=== PATIENT | male | born 1940 | race Caucasian/White ===

== ENCOUNTER 2016-09-24 12:56 | Inpatient (IN) | payer MEDICARE, OTHER ==
[~2016-09-24] VITALS: Ht 180.3 cm; Wt 90.2 kg
[~2016-09-24 12:56] MED LIST: BISACODYL EC 5 MG TAB PO PRN
[2016-09-24] MEDS ORDERED: LOPERAMIDE 2 MG CAPSULE PO PRN (16:25)
[2016-09-24] MEDS ORDERED: ALU/MAG/SIM 30 ML UDC PO PRN (16:25)
[2016-09-24] MEDS ORDERED: MAG HYDROX 30 ML UDC PO PRN (16:25)
[2016-09-24] MEDS ORDERED: METHYLPRED SOD SUCC 125 MG/2 ML VIAL IV ONE (16:25)
[2016-09-24] MEDS ORDERED: ACETAMINOPHEN 325 MG TAB PO PRN (16:25)
[2016-09-24] MEDS ORDERED: ONDANSETRON 4 MG VIAL IV PRN (16:25)
[2016-09-24] MEDS ORDERED: SODIUM CHLORIDE 0.9% FLUSH BAG 500 ML IV PRN (16:25)
[2016-09-24] MEDS ORDERED: PROMETHAZINE 25 MG/ML VIAL IV PRN (16:25)
[2016-09-24] MEDS ORDERED: TEMAZEPAM 15 MG CAP PO PRN (16:25)
[2016-09-24] MEDS ORDERED: SALINE FLUSH 10 ML FLUSH PRN (16:25)
[2016-09-24 16:29] VITALS: BP_SYST 142; BP_SYST 152; RESP 20; TEMP 97.9
[2016-09-24 16:31] VITALS: Ht 180.3 cm; Wt 90.2 kg
[2016-09-24] MEDS ORDERED: DUONEB INH ONE (16:58)
[2016-09-24] MEDS: DUONEB INH SCH ×2 (17:01→23:20)
[2016-09-24 17:08] VITALS: RESP 18
[2016-09-24] MEDS: MDI-SPIRIVA 5 DOSES INH SCH (17:30)
[2016-09-24] MEDS: LEVOFLOXACIN 750 MG/150 ML 150 ML IV SCH (17:56)
[2016-09-24] MEDS: CETIRIZINE 10 MG TAB PO SCH (18:41)
[2016-09-24] MEDS: Furosemide 80 MG TAB PO SCH (18:41)
[2016-09-24] MEDS: ISOSORBIDE MONO 60 MG TAB PO SCH (18:41)
[2016-09-24] MEDS: METOPROLOL TART 50 MG TAB PO SCH (18:42)
[2016-09-24] MEDS: LISINOPRIL 2.5 MG TAB PO SCH (18:42)
[2016-09-24] MEDS: AMIODARONE 200 MG TAB PO SCH (18:42)
[2016-09-24] MEDS: SPIRONOLACTONE 25 MG TAB PO SCH (18:42)
[2016-09-24] MEDS: SERTRALINE 50 MG TAB PO SCH (18:42)
[2016-09-24] MEDS: FAMOTIDINE 20 MG TAB PO SCH (20:30)
[2016-09-24] MEDS: Atorvastatin 20 MG TAB PO SCH (20:30)
[2016-09-24] MEDS: GABAPENTIN 300 MG CAP PO SCH (20:30)
[2016-09-24] MEDS: SALINE FLUSH 10 ML FLUSH SCH (20:30)
[2016-09-24 20:35] VITALS: BP_SYST 158; RESP 18; TEMP 96.8
[2016-09-25] VITALS (9 sets, daily range): BP systolic 130–174; RESP 16–20; TEMP 97.3–98
[2016-09-25] MEDS: METHYLPRED SOD SUCC 125 MG/2 ML VIAL IV SCH ×3 (00:46→16:25)
[2016-09-25] MEDS: DUONEB INH SCH ×6 (02:50→22:40)
[2016-09-25] MEDS ORDERED: NITROGLYCERIN SL 0.4 MG TAB SL ONE (03:47)
[2016-09-25] MEDS ORDERED: NITROGLYCERIN SL 0.4 MG TAB SL PRN (05:00)
[2016-09-25] MEDS: LEVOTHYROXINE 0.088 MG TAB PO SCH (05:43)
[2016-09-25] MEDS: MDI-SPIRIVA 5 DOSES INH SCH (07:00)
[2016-09-25] MEDS: LEVOFLOXACIN 750 MG/150 ML 150 ML IV SCH (09:38)
[2016-09-25] MEDS: NITROGLYCERIN 0.4 MG/HR PATCH TRANSDERM SCH (09:39)
[2016-09-25] MEDS: ASPIRIN EC 81 MG TAB PO SCH (09:40)
[2016-09-25] MEDS: SALINE FLUSH 10 ML FLUSH SCH ×2 (09:41→20:39)
[2016-09-25] MEDS: CETIRIZINE 10 MG TAB PO SCH (09:41)
[2016-09-25] MEDS: SERTRALINE 50 MG TAB PO SCH (09:42)
[2016-09-25] MEDS: LISINOPRIL 2.5 MG TAB PO SCH (09:42)
[2016-09-25] MEDS: ISOSORBIDE MONO 60 MG TAB PO SCH (09:42)
[2016-09-25] MEDS: FAMOTIDINE 20 MG TAB PO SCH ×2 (09:42→20:38)
[2016-09-25] MEDS: AMIODARONE 200 MG TAB PO SCH (09:42)
[2016-09-25] MEDS: SPIRONOLACTONE 25 MG TAB PO SCH (09:42)
[2016-09-25] MEDS: METOPROLOL TART 50 MG TAB PO SCH (09:43)
[2016-09-25] MEDS ORDERED: MISSING DOSE XX ONE (10:30)
[2016-09-25] MEDS: NITROGLYCERIN SL 0.4 MG TAB SL SCH ×4 (11:57→20:44)
[2016-09-25] MEDS: Furosemide 80 MG TAB PO SCH (12:40)
[2016-09-25] MEDS: GABAPENTIN 300 MG CAP PO SCH (20:38)
[2016-09-25] MEDS: Atorvastatin 20 MG TAB PO SCH (20:38)
[2016-09-25] MEDS: TRAMADOL 50 MG TAB PO PRN (20:38)
[2016-09-26] MEDS: METHYLPRED SOD SUCC 125 MG/2 ML VIAL IV SCH (00:32)
[2016-09-26] MEDS: DUONEB INH SCH ×6 (03:14→22:31)
[2016-09-26 03:44] VITALS: BP_SYST 138; RESP 20; TEMP 96.9
[2016-09-26] MEDS: LEVOTHYROXINE 0.088 MG TAB PO SCH (05:14)
[2016-09-26] MEDS: MORPHINE 2 MG/ML SYR IV PRN ×2 (05:15→20:03)
[2016-09-26] MEDS: MDI-SPIRIVA 5 DOSES INH SCH (07:09)
[2016-09-26] MEDS ORDERED: METHYLPRED SOD SUCC 40 MG VIAL IV SCH ×2 (08:00→16:00)
[2016-09-26] MEDS: SALINE FLUSH 10 ML FLUSH SCH ×2 (08:00→20:01)
[2016-09-26] MEDS: NITROGLYCERIN 0.4 MG/HR PATCH TRANSDERM SCH (09:33)
[2016-09-26] MEDS: ISOSORBIDE MONO 60 MG TAB PO SCH (09:35)
[2016-09-26] MEDS: METOPROLOL TART 50 MG TAB PO SCH (09:35)
[2016-09-26] MEDS: SERTRALINE 50 MG TAB PO SCH (09:35)
[2016-09-26] MEDS: SPIRONOLACTONE 25 MG TAB PO SCH (09:35)
[2016-09-26] MEDS: AMIODARONE 200 MG TAB PO SCH (09:35)
[2016-09-26] MEDS: Furosemide 80 MG TAB PO SCH (09:36)
[2016-09-26] MEDS: LEVOFLOXACIN 750 MG/150 ML 150 ML IV SCH (09:36)
[2016-09-26] MEDS: CETIRIZINE 10 MG TAB PO SCH (09:36)
[2016-09-26] MEDS: LISINOPRIL 2.5 MG TAB PO SCH (09:36)
[2016-09-26] MEDS: ASPIRIN EC 81 MG TAB PO SCH (09:36)
[2016-09-26] MEDS: FAMOTIDINE 20 MG TAB PO SCH ×2 (09:38→19:58)
[2016-09-26] MEDS: PANTOPRAZOLE 40 MG TAB PO SCH (12:00)
[2016-09-26 13:15] VITALS: BP_SYST 114; RESP 18; TEMP 95.5
[2016-09-26 15:43] VITALS: BP_SYST 128; RESP 18; TEMP 96.3
[2016-09-26] MEDS: METHYLPRED SOD SUCC 40 MG VIAL IV SCH (17:44)
[2016-09-26] MEDS: TRAMADOL 50 MG TAB PO PRN ×2 (17:45→22:44)
[2016-09-26] MEDS: GABAPENTIN 300 MG CAP PO SCH (19:58)
[2016-09-26] MEDS: Atorvastatin 20 MG TAB PO SCH (20:01)
[2016-09-26 21:59] VITALS: BP_SYST 130; RESP 18; TEMP 97.1
[2016-09-26 23:22] VITALS: BP_SYST 130; RESP 18; TEMP 96.7
[2016-09-27] MEDS: METHYLPRED SOD SUCC 40 MG VIAL IV SCH ×3 (00:58→18:01)
[2016-09-27] MEDS: DUONEB INH SCH ×6 (02:48→22:44)
[2016-09-27 03:33] VITALS: BP_SYST 130; RESP 16; TEMP 98
[2016-09-27] MEDS ORDERED: MISSING DOSE XX ONE ×3 (06:15→20:35)
[2016-09-27] MEDS: LEVOTHYROXINE 0.088 MG TAB PO SCH (06:35)
[2016-09-27] MEDS: PANTOPRAZOLE 40 MG TAB PO SCH (06:35)
[2016-09-27 07:43] VITALS: BP_SYST 122; RESP 20; TEMP 98.2
[2016-09-27] MEDS: MDI-SPIRIVA 5 DOSES INH SCH (07:49)
[2016-09-27] MEDS: ISOSORBIDE MONO 60 MG TAB PO SCH (09:39)
[2016-09-27] MEDS: METOPROLOL TART 50 MG TAB PO SCH (09:39)
[2016-09-27] MEDS: NITROGLYCERIN 0.4 MG/HR PATCH TRANSDERM SCH (09:39)
[2016-09-27] MEDS: LEVOFLOXACIN 750 MG/150 ML 150 ML IV SCH (09:39)
[2016-09-27] MEDS: AMIODARONE 200 MG TAB PO SCH (09:39)
[2016-09-27] MEDS: CETIRIZINE 10 MG TAB PO SCH (09:40)
[2016-09-27] MEDS: ASPIRIN EC 81 MG TAB PO SCH (09:40)
[2016-09-27] MEDS: SPIRONOLACTONE 25 MG TAB PO SCH (09:40)
[2016-09-27] MEDS: SALINE FLUSH 10 ML FLUSH SCH ×3 (09:40→20:32)
[2016-09-27] MEDS: SERTRALINE 50 MG TAB PO SCH (09:40)
[2016-09-27] MEDS: LISINOPRIL 2.5 MG TAB PO SCH (09:40)
[2016-09-27 11:07] VITALS: BP_SYST 132; RESP 20; TEMP 96.3
[2016-09-27] MEDS: FAMOTIDINE 20 MG TAB PO SCH ×2 (11:31→20:31)
[2016-09-27] MEDS: TRAMADOL 50 MG TAB PO PRN ×2 (11:31→20:32)
[2016-09-27] MEDS ORDERED: LORAZEPAM 0.5 MG TAB PO PRN (12:35)
[2016-09-27] MEDS ORDERED: SALINE FLUSH 10 ML FLUSH PRN (12:35)
[2016-09-27 14:42] VITALS: BP_SYST 132; RESP 20; TEMP 96.1
[2016-09-27] MEDS: NYSTATIN 500,000 UNITS/5 ML SUSP SWISH.SWAL SCH ×4 (17:00→20:50)
[2016-09-27 20:30] VITALS: BP_SYST 140; RESP 18; TEMP 96.2
[2016-09-27] MEDS: GABAPENTIN 300 MG CAP PO SCH (20:31)
[2016-09-27] MEDS: Atorvastatin 20 MG TAB PO SCH (20:31)
[2016-09-27] MEDS ORDERED: TEMAZEPAM 15 MG CAP PO PRN (21:00)
[2016-09-27] MEDS ORDERED: SODIUM CHLORIDE 0.9% 1,000 ML IV SCH (23:55)
[2016-09-28] VITALS (9 sets, daily range): BP systolic 124–162; RESP 16–20; TEMP 97.3–97.9
[2016-09-28] MEDS: METHYLPRED SOD SUCC 40 MG VIAL IV SCH (00:54)
[2016-09-28] MEDS: SODIUM CHLORIDE 0.9% FLUSH BAG 500 ML IV SCH (00:54)
[2016-09-28] MEDS: DUONEB INH SCH ×6 (03:05→23:40)
[2016-09-28] MEDS: TRAMADOL 50 MG TAB PO PRN ×2 (03:37→20:43)
[2016-09-28] MEDS ORDERED: DIAZEPAM 5 MG TAB PO ONE (06:00)
[2016-09-28] MEDS: MDI-SPIRIVA 5 DOSES INH SCH (07:00)
[2016-09-28] MEDS: PANTOPRAZOLE 40 MG TAB PO SCH (08:00)
[2016-09-28] MEDS: NYSTATIN 500,000 UNITS/5 ML SUSP SWISH.SWAL SCH ×4 (11:52→20:45)
[2016-09-28] MEDS: NITROGLYCERIN 0.4 MG/HR PATCH TRANSDERM SCH (11:53)
[2016-09-28] MEDS: SERTRALINE 50 MG TAB PO SCH (11:54)
[2016-09-28] MEDS: LEVOTHYROXINE 0.088 MG TAB PO SCH (11:54)
[2016-09-28] MEDS: FAMOTIDINE 20 MG TAB PO SCH ×2 (11:54→20:44)
[2016-09-28] MEDS: ASPIRIN EC 81 MG TAB PO SCH (11:54)
[2016-09-28] MEDS: SALINE FLUSH 10 ML FLUSH SCH ×4 (11:55→20:45)
[2016-09-28] MEDS: ISOSORBIDE MONO 60 MG TAB PO SCH (11:55)
[2016-09-28] MEDS: AMIODARONE 200 MG TAB PO SCH (11:55)
[2016-09-28] MEDS: CETIRIZINE 10 MG TAB PO SCH (11:55)
[2016-09-28] MEDS: METOPROLOL TART 50 MG TAB PO SCH (11:56)
[2016-09-28] MEDS ORDERED: MIDAZOLAM 2 MG/2 ML INJ ONE (17:51)
[2016-09-28] MEDS ORDERED: LIDOCAINE 2% 20 ML ONE (17:51)
[2016-09-28] MEDS ORDERED: SODIUM CHLORIDE 0.9% 1,000 ML IV SCH (18:15)
[2016-09-28] MEDS: RANOLAZINE ER 500 MG TAB PO SCH (20:43)
[2016-09-28] MEDS: Atorvastatin 20 MG TAB PO SCH (20:44)
[2016-09-28] MEDS: GABAPENTIN 300 MG CAP PO SCH (20:44)
[2016-09-29] VITALS (7 sets, daily range): BP systolic 110–126; RESP 18–20; TEMP 97.1–97.4
[2016-09-29] MEDS: DUONEB INH SCH ×4 (03:14→14:04)
[2016-09-29] MEDS: SODIUM CHLORIDE 0.9% FLUSH BAG 500 ML IV SCH (06:00)
[2016-09-29] MEDS: LEVOTHYROXINE 0.088 MG TAB PO SCH (06:22)
[2016-09-29] MEDS: PANTOPRAZOLE 40 MG TAB PO SCH (06:22)
[2016-09-29] MEDS: MDI-SPIRIVA 5 DOSES INH SCH (06:26)
[2016-09-29] MEDS: SALINE FLUSH 10 ML FLUSH SCH ×2 (07:57→08:58)
[2016-09-29] MEDS: SERTRALINE 50 MG TAB PO SCH (08:56)
[2016-09-29] MEDS: TRAMADOL 50 MG TAB PO PRN (08:56)
[2016-09-29] MEDS: ASPIRIN EC 81 MG TAB PO SCH (08:56)
[2016-09-29] MEDS: AMIODARONE 200 MG TAB PO SCH (08:56)
[2016-09-29] MEDS: ISOSORBIDE MONO 60 MG TAB PO SCH (08:57)
[2016-09-29] MEDS: CETIRIZINE 10 MG TAB PO SCH (08:57)
[2016-09-29] MEDS: FAMOTIDINE 20 MG TAB PO SCH (08:57)
[2016-09-29] MEDS: METOPROLOL TART 50 MG TAB PO SCH (08:57)
[2016-09-29] MEDS: RANOLAZINE ER 500 MG TAB PO SCH (08:57)
[2016-09-29] MEDS: NITROGLYCERIN 0.4 MG/HR PATCH TRANSDERM SCH (08:58)
[2016-09-29] MEDS: NYSTATIN 500,000 UNITS/5 ML SUSP SWISH.SWAL SCH ×2 (08:58→13:11)
[2016-09-29] MEDS ORDERED: LEVOFLOXACIN 750 MG TAB PO SCH (09:00)
== END 2016-09-29 16:07 | disposition short-term general hospital (02) | DRG 287 ==
LOC: ENRESERVTM → ENRESERVDT → 4NT 15:23 → OBSVTOIN 09-25 09:07
PROVIDERS: ADMIT Internal Medicine; ATTEND Internal Medicine
PROC: 4A023N7 Measurement of Cardiac Sampling and Pressure, Left Heart, Percutaneous Approach (ICD-10-PCS; principal; 2016-09-28)
PROC: B2111ZZ Fluoroscopy of Multiple Coronary Arteries using Low Osmolar Contrast (ICD-10-PCS; 2016-09-28)
DX: I25.110 Atherosclerotic heart disease of native coronary artery with unstable angina pectoris (principal); J44.1 Chronic obstructive pulmonary disease with (acute) exacerbation; N17.9 Acute kidney failure, unspecified; B37.0 Candidal stomatitis; I42.9 Cardiomyopathy, unspecified; E11.9 Type 2 diabetes mellitus without complications; I10 Essential (primary) hypertension; E03.9 Hypothyroidism, unspecified; M19.90 Unspecified osteoarthritis, unspecified site; I48.0 Paroxysmal atrial fibrillation; E78.5 Hyperlipidemia, unspecified; G25.81 Restless legs syndrome; K21.9 Gastro-esophageal reflux disease without esophagitis; I25.2 Old myocardial infarction; Z95.0 Presence of cardiac pacemaker; Z87.891 Personal history of nicotine dependence; Z95.5 Presence of coronary angioplasty implant and graft
CPT/HCPCS: 36600; 71020; 71250; 80048; 80053; 82550; 82553; 82803; 83735; 84484; 85014; 85018; 85025; 86738; 87071; 87205; 87278; 87299; 93005; 93306; 93458; 93922; 94640; 94799